=== PATIENT | female | born 1995 | race Caucasian/White ===

== ENCOUNTER 2021-04-22 19:06 | Emergency (ER) | payer SELFPAY ==
[~2021-04-22] VITALS: Ht 152.4 cm; Wt 74.4 kg
[2021-04-22] MEDS ORDERED: IBUPROFEN 400 MG TABLET ONE (19:24)
--- NOTE | 2021-04-22 19:25 | NUR ---
PATIENT CAME TO THE ER BED 1 C/O LEFT HIP PAIN RADIATING TO THE LEFT ANTERIOR HIP REGION. PATIENT STATES THAT SHE HAD A SLIP AND FALL IN A GROCERY STORE DUE TO THE FLOOR BEING WET. PATIENT ALSO C/O OF HEADACHE AND LEFT THIGH PAIN. PATIENT STATES THAT SHE DID NOT HIT HER HEAD. "IT ALL HAPPENED SO FAST". DENIES LOSING CONSCIOUSNESS. PATIENT IS ALERT AND ORIENTED x4. PATIENT BREATHING EVENLY AND UNLABORED ON ROOM AIR. CONNECTED TO THE MONITOR.
[2021-04-22] MEDS ORDERED: IBUPROFEN 400 MG TABLET PO ONE (19:30)
--- NOTE | 2021-04-22 19:38 | NUR ---
PATIENT TAKEN TO XRAY
--- NOTE | 2021-04-22 19:59 | NUR ---
RETURNED FROM RADIOLOGY
--- NOTE | 2021-04-22 20:50 | NUR ---
Patient discharged to home in stable condition. Written and verbal after care instructions given. Patient verbalizes understanding of instruction. PT ambulatory with a steady gait
[2021-04-22 21:01] VITALS: BP 110/84
== END 2021-04-22 20:50 | disposition home or self-care (01) ==
LOC: ER 19:32
DX: M25.552 Pain in left hip (principal); M54.2 Cervicalgia; W01.0XXA Fall on same level from slipping, tripping and stumbling without subsequent striking against object, initial encounter; Y93.89 Activity, other specified; Y92.512 Supermarket, store or market as the place of occurrence of the external cause; Y99.8 Other external cause status
CPT/HCPCS: 72050-TC; 73020